=== PATIENT | male | born 1940 | race Caucasian/White ===

== ENCOUNTER 2024-10-28 20:40 | Outpatient (OUT) | payer MEDICARE, OTHER, SELFPAY ==
--- OUTSIDE RECORDS SUMMARY | 2012-04-30 20:00 | XMS_ITS | Continuity of Care Document ---
Author Organization [facility] Address [address] [place] [phone] Phone Care Team Providers Care Refining Equipment Operator Name Role Phone RCM, Rendering Unavailable Unavailable Allergies, Adverse Reactions, Alerts Substance Reaction Status Criticality No Known Allergies Active No Inform ation Advance Directives Directive Yes / No Effective Date File Name No Information Encounters Encounter Description Practice Location Reason(s) For Visit Diagnoses Date Provider Providers Copied on Encounter [facility], [address] [place] [address], [id number], tel:[phone] [facility] Location Cataract Nuclear Sclerotic RCM Rendering. [address] [place] [address], [facility], . tel:[phone] [facility], [address] [place] [address], [id number], tel:[phone] [facility] Location Cataract Nuclear Sclerotic RCM Rendering. [address] [place] [address], [facility], . tel:[phone] Family History Family Member Type Diagnosis Age At Onset No Information Payers Payer name Insurance type Covered green party ID Authoriza tion(s) No Information Social History Type Description Quantity Date Captured Comments Alcohol Use Details Unknown Caffeine Use Details Unknown Tobacco Use Status Never smoker (Never Smoked) Smoking Status Never smoker (Never Smoked) Non-Smoking Tobacco Use Details : No Details Available : No Details Available Sex Male Chief Complaint And Reason For Visit No Information Reason For Referral Reason For Referral No Information History Of Present Illness Encounter Date Complaint History Of Prese nt Illness No Information Functional Status Date Functional Assessmen t No Information Instructions Date Instruction Allyson Bryan cuate Impression/Plan Related to Diagn osis Description: CATARACT, NUCLEAR SCLEROSIS OU \nDiagnosis Code: 366.16 Impression/Plan Related to Diagn osis Description: CATARACT, NUCLEAR SCLEROSIS OU \nDiagnosis Code: 366.16 Assessments Type Assessment Date No Information Patient Care Teams Name Effective Dates (start - stop) Status Members No Information
--- OUTSIDE RECORDS SUMMARY | 2023-07-22 06:30 | XMS_ITS | Continuity of Care Document ---
Author Organization [facility] Address [address] [place] [address] Phone Care Team Providers Care Paper Sorter Name Role Phone Raymundo Winters MD Unavailable Unavailable Allergies, Adverse Reactions, Alerts Substance Reaction Status Criticality No Known Allergies Active No Inform ation Medications Medication Instructions Dosage Effective Dates (start - stop) Status Comments No Drug Therapy Prescribed Procedures Procedure Date Office/outpatient visit,[facility] 2023 X-ray exam of knee, 4+ views Drain Or inject major jointor bursa Triamcinolone acetonide inj Advance Directives Directive Yes / No Effective Date File Name No Information Encounters Encounter Description Practice Location Reason(s) For Visit Diagnoses Date Provider Providers Copied on Encounter Office/outpat ient visit,[facility], [facility], [address] [place], [address], [place] tel:[phone] [place] Unilateral primary osteoarthritis, right knee 4 Singh Fonseca. [address], [place], [place], [id number] , [place]. tel:[phone] Referring Provider: Raymundo Marrero, [address], [place], [address] . tel:[phone] [facility], [address] [place], [address], [place] tel:[phone] [place] Primary osteoarthritis of right knee 4 Guido Borrego. [address], [place], [place], [id number] , [place]. tel:[phone] Referring Provider: Raymundo Marrero, [address], [place], [address] . tel:[phone] Family History Family Member Type Diagnosis Age At Onset No Information Payers Payer name Insurance type Covered alliance party ID Authormargo yao(s) Medicare [place] MB [id number] [place] [address] Only [place] [id number] Social History Type Description Quantity Date Captured Comments Alcohol Use Details Unknown Caffeine Use Details Unknown Tobacco Use Status No Information Smoking Status Never smoker Non-Smoking Tobacco Use Details : No Details Available : No Details Available Sex Male Vital Signs Date / Time: Height Weight BMI Pulse Rate Blood Pressure Temperature Respiratory Rate Body Surface Area Head Circumference Head Circ. Percentile Wt./Luis Manuel. Percentile BMI percentile Pulse Ox Inhaled Ox 10:05 AM 70.00 in 91.626 kg (202.00 lbs) 28.9 8 kg/m eter (2) Chief Complaint And Reason For Visit No Information Reason For Referral Reason For Referral No Information History Of Present Illness Encounter Date Complaint History Of Prese nt Illness Knee Functional Status Date Functional Assessmen t No Information Medications Administered Medication Instructions Dosage Effective Dates (start - stop) Status Comments No Drug Therapy Prescribed Instructions Date Instruction Additional Infor mation No Information Assessments Type Assessment Date No Information Patient Care Teams Name Effective Dates (start - stop) Status Members No Information
--- OUTSIDE RECORDS SUMMARY | 2024-10-20 08:40 | XMS_ITS | Encounter Summary ---
Author Organization [facility] Address [address] [place] [address] Care Team Providers Care Floorworker Lasting Name Role Phone Lauren Adamson MD Primary Care Provider Reason for Visit * Reason Comments Follow-up Encounter Details Date Type Department Care Team (Late st Contact Info) Description 10/20/2024 8:40 AM EDT Office Visit [facility] [address] [place] [id number] Lauren Adamson MD [address] [place], [place] [phone] Impaired fasting glucose; Encounter for immunization Social History Tobacco Use Types Packs/Day Years Used Date Smoking Tobacco: Never Smokeless Tobacco: Never Alcohol Use Standard Drinks/Week Comments Yes 0 (1 standard drink = 0.6 oz pur e alcohol) occasionally PHQ-2 Answer Date Recorded Patient Health Questionnaire-2 Score 0 09/16/2024 Sex and Gender Information Value Date Recorded Sex Assigned at Not on file Legal Sex Male 7:19 PM EDT Gender Identity Not on file Sexual Orientation Not on file documented as of this encounter Last Filed Vital Signs Vital Sign Reading Time Taken Comments Blood Pressure 110/72 10/20/2024 8:47 AM EDT Pulse 61 10/20/2024 8:47 AM EDT Temperature - - Respiratory Rate 18 10/20/2024 8:47 AM EDT Oxygen Saturation 98% 10/20/2024 8:47 AM EDT Inhaled Oxygen Concentration - - Weight 90.2 kg (198 lb 12.8 oz) 025 8:47 AM EDT Height 177.8 cm (5' 10 ) 10/20/2024 8:47 AM EDT Body Mass Index 28.52 10/20/2024 8:47 AM EDT documented in this encounter Progress Notes * Lauren Adamson MD - 10/20/2024 8:40 AM EDT Images from the original note were not included. Subjective ?Quick Links Last Note in Specialty Snapshot Edit RFV/CC Edit Screenings Current Meds Patient ID: Raymundo Chopra is a 84 y.o. male who presents for Follow-up. HPI History of Present Illness The patient presents for evaluation of impaired glucose tolerance and sleep apnea. He has not been formally diagnosed with diabetes. He maintains a healthy diet, rich in vegetables, and leads an active lifestyle, working daily. He reports feeling well overall. He reports no respiratory issues or chest pain. However, he does experience frequent nasal congestion. He is scheduled for a sleep study on 10/28/2024. ?Quick Review Review Full History Edit History Meds - apixaban (Eliquis) 5 MG tablet Cyanocobalamin 2500 MCG sublingual tablet donepezil (Aricept) 5 MG tablet fluticasone (Flonase Sensimist) 27.5 MCG/SPRAY nasal spray ipratropium (Atrovent) 0.06 % nasal spray metoprolol succinate XL (Toprol-XL) 25 MG 24 hr tablet pantoprazole (ProtoNix) 40 MG EC tablet sotalol (Betapace) 80 MG tablet tamsulosin (Flomax) 0.4 MG 24 hr capsule --- No past medical history on file. Objective ?Quick Links Add Vitals Timeline (Adult) Labs Imaging Results Review Trend Vitals ?? Avoid pulling in long tables of results. Comment on relevant results to support your medical decision making. BP 110/72 (BP Location: Left arm, Patient Position: Sitting, BP Cuff Size: Adult) Pulse 61 Resp18 Ht 5' 10 Wt 198 lb 12.8 oz SpO2 98% BMI 28.52 kg/m?? Physical Exam Constitutional: Appearance: He is normal weight. HENT: Head: Normocephalic and atraumatic. Nose: Nose normal. No congestion. Mouth/Throat: Mouth: Mucous membranes are moist. Eyes: Extraocular Movements: Extraocular movements intact. Pupils: Pupils are equal, round, and reactive to light. Cardiovascular: Rate and Rhythm: Normal rate and regular rhythm. Pulmonary: Effort: Pulmonary effort is normal. No respiratory distress. Breath sounds: Normal breath sounds. No wheezing. Musculoskeletal: General: No swelling or deformity. Cervical back: Normal range of motion and neck supple. Right lower leg: No edema. Left lower leg: No edema. Skin: General: Skin is warm and dry. Findings: No rash. Neurological: General: No focal deficit present. Mental Status: He is alert and oriented to person, place, and time. Cranial Nerves: No cranial nerve deficit. Gait: Gait normal. Psychiatric: Mood and Affect: Mood normal. Behavior: Behavior normal. Physical Exam Respiratory: Clear to auscultation, no wheezing, rales or rhonchi Cardiovascular: Regular rate and rhythm, no murmurs, rubs, or gallops Lab Results Component Value Date HGBA1C 6.1 10/20/2024 ?Quick Links Full Problem List Cardiology CHF Assessment & Plan Impaired fasting glucose Orders: POCT glycosylated hemoglobin (Hb A1C) docked device Microalbumin / creatinine urine ratio; Future Assessment & Plan 1. Impaired glucose tolerance: - Blood glucose levels have shown improvement compared to the previous year, indicating careful dietary management. - A urine sample will be collected for further analysis. 2. Sleep apnea: - He is scheduled for a sleep study on 10/28/2024. If diagnosed with sleep apnea, a mask will be provided to help manage the condition. 3. Health maintenance: - He was advised to receive the influenza vaccine today and the COVID-19 vaccine, but he declined the COVID-19 vaccine. The importance of these vaccines, especially given his age and increased risk of respiratory infections, was discussed. - The influenza vaccine will be administered today. documented in this encounter Plan of Treatment Upcoming Encounters Date Type Department Care Team (Late st Contact Info) Description 11/03/2024 9:00 AM EDT Office Visit [facility] [address] [facility] [address] [place] [address] Betty Ribera MD [address] [facility] [address] [place] [address] documented as of this encounter Procedures Procedure Name Priority Date/Time Associated Diagnosis Comments MICROALBUMIN / CREATININE URINE RATIO Routine 10/20/2024 9:32 AM EDT Impaired fasting glucose POCT GLYCOSYLATED HEMOGLOBIN (HGB A1C) Routine 10/20/2024 8:55 AM EDT Impaired fasting glucose documented in this encounter Results * Microalbumin / creatinine urine ratio (10/20/2024 9:32 AM EDT) CREATININE, RANDOM URINE 131 20 - 320 mg/dL [facility] ALBUMIN, URINE 1.3 See Note: mg/dL [facility] Comment: Reference Range: Reference Range Not established ALBUMIN/CREATININE RATIO, RANDOM URINE 10 <30 mg/g creat [facility] Comment: The ADA defines abnormalities in albumin excretion as follows: Albuminuria Category Result (mg/g creatinine) Normal to Mildly increased <30 Moderately increased 30-299 Severely increased > OR = 300 The ADA recommends that at least two of three specimens collected within a 3-6 month period be abnormal before considering a patient to be within a diagnostic category. Urine Urine specimen obtained by clean catch procedure / Unknown 10/20/2024 9:32 AM EDT 10/20/2024 4:00 PM EDT Narrative Resulting Agency Comment Performing Organization Information Site ID: QPT Name: [facility] Address: [address] [place] [phone] Director: Jerry Zimmerman MD us Lauren Adamson MD LAB URINE ORDERABLES Final Resul t [facility] * (ABNORMAL) POCT glycosylated hemoglobin (Hb A1C) docked device (10/20/2024 8:55 AM EDT) Hemoglobin A1C 6.1 Blood Venous blood specimen / Unknown 10/20/2024 8:55 AM EDT us Lauren Adamson MD POINT OF CARE TEST ENTER/EDIT OR DERABLES Final Result documented in this encounter Visit Diagnoses Diagnosis Impaired fasting glucose Encounter for immunization documented in this encounter Care Teams Floorworker Lasting Relationship Specialty Start Date End Date Lauren Adamson MD [address] [place] [address] PCP - General Family Medicine 09/09/24 documented as of this encounter
--- OUTSIDE RECORDS SUMMARY | 2024-10-28 20:43 | XMS_ITS | Encounter Summary ---
[id number] [address] [place] [address] Care Team Providers Care Floral Manager Name Role Phone Lauren Adamson MD Primary Care Provider [phone] Encounter Details Date Type Department Care Team (Late st Contact Info) Description 09/10/2024 Results Follow-Up [facility] [address] [place] [phone] Oren Rubin RN Basic Metabolic Panel, Magnesium Social History Tobacco Use Types Packs/Day Years Used Date Smoking Tobacco: Never Smokeless Tobacco: Never Alcohol Use Standard Drinks/Week Comments Not Currently 0 (1 standard drink = 0.6 oz pur e alcohol) [facility] Utilities Answer Date Recorded In the past 12 months has e electric, gas, oil, or water company threatened to shut off services in your home? No 09/20/2023 PRAPARE - Transportation Answer Date Re corded In the past 12 months, has l ack of transportation kept you from medical appointments or from getting medications? No 10/2023 In the past 12 months, has l ack of transportation kept you from meetings, work, or from getting things needed for daily living? No 09/20/2023 Housing Instability Answer Date Recorde d Are you worried or concerned that in the next two months you may not have stable housing that you own, rent or stay in as a part of a household? No 09/20/2023 Childcare Answer Date Recorded Childcare Unknown 07/23/2018 Employment Answer Date Recorded Employment Unknown 07/23/2018 Hunger Screening Answer Date Recorded Within the past 12 months we worried whether our food would run out before we got money to buy more. Never True 10/23/2023 Within the past 12 months th e food we bought just didn't last and we didn't have money to get more. Never True 10/23/2023 Purpose - Life Answer Date Recorded I have a purpose and direction in my life. Stron gly Agree 09/16/2023 Sex and Gender Information Value Date Recorded Sex Assigned at Male 09/15/2018 5:13 PM EDT Legal Sex Male 11:30 AM EDT Gender Identity Male 09/15/2018 5:13 PM EDT Sexual Orientation Straight 09/15/2018 5: 13 PM EDT documented as of this encounter Plan of Treatment Not on file documented as of this encounter Goals Goal Patient Goal Type Associated Problems Recent Progress Patient-Stated? Author home with self care General Yes Nazia Hill, RN Note: Evaluation of progress towards goal: per patient is independent at home with all ADL's and mobility. documented as of this encounter Visit Diagnoses Not on filedocumented in this encounter Care Teams Floral Manager Relationship Specialty Start Date End Date Lauren Adamson MD PCP - General Family Medicine 10/21/18 documented as of this encounter
--- OUTSIDE RECORDS SUMMARY | 2024-10-28 20:43 | XMS_ITS | Encounter Summary ---
Author Organization [facility] Address [id number] [address] [place] [address] Care Team Providers Care Last Model Department Supervisor Name Role Phone Lauren Adamson MD Primary Care Provider [phone] Encounter Details Date Type Department Care Team (Late st Contact Info) Description 02/03/2020 Orders Only [facility] [address] [place] [phone] Pennie Elise MA Mixed hyperlipidemia Social History Tobacco Use Types Packs/Day Years Used Date Smoking Tobacco: Never Smokeless Tobacco: Never Alcohol Use Standard Drinks/Week Comments Yes 0 (1 standard drink = 0.6 oz pur e alcohol) Childcare Answer Date Recorded Childcare Unknown 07/23/2018 Employment Answer Date Recorded Employment Unknown 07/23/2018 Sex and Gender Information Value Date Recorded Sex Assigned at Male 09/15/2018 5:13 PM EDT Legal Sex Male 11:30 AM EDT Gender Identity Male 09/15/2018 5:13 PM EDT Sexual Orientation Straight 09/15/2018 5: 13 PM EDT COVID-19 Exposure Response Date Recorded In the last month, have you been in contact with someone who was confirmed or suspected to have Coronavirus / COVID-19? No / Unsure 01/14/2020 8:54 AM EST documented as of this encounter Plan of Treatment Not on file documented as of this encounter Procedures Procedure Name Priority Date/Time Associated Diagnosis Comments LIPID PROFILE Routine 01/05/2020 Mixed hyperlipidemia documented in this encounter Results * Lipid panel (01/05/2020) External Cholesterol 110 [facility] External Cholesterol:Hdl 2 [facility] External Hdl Cholesterol 54 [facility] External Ldl (Calc) 46 [facility] External Triglycerides 50 [facility] External Very Low Lipoprotein 10 [facility] 01/05/2020 Ammon Woody ACTIVITY THERAPY TEACHER-SUPERVISOR ASSEMBLY LAB BLOOD ORDERABLES Final Result [facility] documented in this encounter Visit Diagnoses Diagnosis Mixed hyperlipidemia documented in this encounter Care Teams Last Model Department Supervisor Relationship Specialty Start Date End Date Lauren Adamson MD PCP - General Family Medicine 10/21/18 documented as of this encounter
--- OUTSIDE RECORDS SUMMARY | 2024-10-28 20:43 | XMS_ITS | Encounter Summary ---
Author Organization [facility] Address [id number] [address] [place] [address] Care Team Providers Care Second Hand Name Role Phone Lauren Adamson MD Primary Care Provider [phone] Encounter Details Date Type Department Care Team (Late st Contact Info) Description 03/30/2019 Refill [facility] [address] [place] [phone] Tiffany Haddad, TIM Social History Tobacco Use Types Packs/Day Years [...] PM EDT documented as of this encounter Miscellaneous Notes * Telephone Encounter - Tiffany Haddad RN - 03/30/2019 11:38 AM EST Pt requesting eliquis samples but relates not taking an other meds at this time except ASA 81mg occaisionaly. Meds reviewed. When asked why stopped taking states well my body ached so bad that I stopped them and feel much better. Instructed to restart losartan 12.5mg QD/betapace. Needs to take ASA [address]D. Will message Dr. Hernandez regarding crestor causing muscle aches. Tiffany Haddad RN 03/30/19 1144 * Telephone Encounter - Willi Hernandez DO - 03/30/2019 11:38 AM EST Zetia 10 mg daily and repeat lab in 2 months. * Telephone Encounter - Tiffany Haddad RN - 03/30/2019 11:38 AM EST Instructions called to pt. Tiffany Haddad RN 04/02/19 1535 * Telephone Encounter - Billie Amezcua RN - 03/30/2019 11:38 AM EST Pt reminded to have done soon documented in this encounter Plan of Treatment Not on file documented as of this encounter Visit Diagnoses Diagnosis Pure hypercholesterolemia- Primary Atherosclerosis of [place] coronary artery of [place] heart with stable angina pectoris Encounter for therapeutic drug monitoring documented in this encounter Care Teams Second Hand Relationship Specialty Start Date End Date Lauren Adamson MD PCP - General Family Medicine 10/21/18 documented as of this encounter
--- OUTSIDE RECORDS SUMMARY | 2024-10-28 20:43 | XMS_ITS | Encounter Summary ---
Author Organization [facility] Address [facility] [id number] [address] [place] [address] Care Team Providers Care Relocation Coordinator Name Role Phone Lauren Adamson MD Primary Care Provider Encounter Details Date Type Department Care Team (Late st Contact Info) Description 02/03/2020 Orders Only [facility] [address] [place] [phone] Billie Amezcua RN Paroxysmal atrial fibrillation (CMS-HCC) (Primary Dx); SOB (shortness of breath) Social History Tobacco Use Types Packs/Day Years [...] on file documented as of this encounter Results * CBC auto differential (02/26/2020) 02/26/2020 us Willi G David DO LAB BLOOD ORDERABLES Final Resul t [facility] documented in this encounter Visit Diagnoses Diagnosis Paroxysmal atrial fibrillation (CMS-HCC)- Primary Atrial fibrillation SOB (shortness of breath) Shortness of breath documented in this encounter Care Teams Relocation Coordinator Relationship Specialty Start Date End Date Lauren Adamson MD PCP - General Family Medicine 10/21/18 documented as of this encounter
--- OUTSIDE RECORDS SUMMARY | 2024-10-28 20:43 | XMS_ITS | Encounter Summary ---
Author Organization [facility] Address [id number] [address] [place] [address] Care Team Providers Care Line Haul Owner Operator Name Role Phone Lauren Adamson MD Primary Care Provider [phone] Reason for Visit * Reason Comments Med Refill Encounter Details Date Type Department Care Team (Late st Contact Info) Description 11/26/2022 Refill [facility] [address] [place] [phone] Gael Vasquez, PRESS OFFICER-FIRE SPRINKLER APPARATUS INSPECTOR [address] [place] [address] Med Refill Social History Tobacco Use Types Packs/Day Years [...] got money to buy more. Never True 10/09/2022 Within the past 12 months th e food we bought just didn't last and we didn't have money to get more. Never True 10/09/2022 Purpose - Life Answer Date Recorded Purpose and direction in life Unknown Sex and Gender Information Value Date Recorded Sex Assigned at Male 09/15/2018 5:13 PM EDT Legal Sex Male 11:30 AM EDT Gender Identity Male 09/15/2018 5:13 PM EDT Sexual Orientation Straight 09/15/2018 5: 13 PM EDT documented as of this encounter Miscellaneous Notes * Telephone Encounter - Sita Jimenez RN - 11/26/2022 9:47 AM EDT Received refill req from pharm for sotalol. Last ov-10/09/22, cmp,mg-09/25/22,EKG-07/31/22. REfill pended to [facility] documented in this encounter Plan of Treatment Not on file documented as of this encounter Visit Diagnoses Diagnosis Paroxysmal atrial fibrillation ([facility]-H[facility]) Atrial fibrillation Encounter for therapeutic drug monitoring documented in this encounter Care Teams Line Haul Owner Operator Relationship Specialty Start Date End Date Lauren Adamson MD PCP - General Family Medicine 10/21/18 documented as of this encounter
--- OUTSIDE RECORDS SUMMARY | 2024-10-28 20:43 | XMS_ITS | Clinical Summary ---
Author Organization [facility] Address [address], [address] [place] [address] Care Team Providers Care Shoe Handler Name Role Phone Unavailable Primary Care Provider Unavailabl e Allergies No known active allergies Medications SIMVASTATIN PO Take by mouth daily Active aspirin 81 MG tablet Take 81 mg by mouth daily Active Active Problems Problem Noted Date Diagnosed Date Combined forms of age-related cataract of right eye 09/22/2016 Social History Tobacco Use Types Packs/Day Years Used Date Smoking Tobacco: Never Sex and Gender Information Value Date Recorded Sex Assigned at Not on file Legal Sex Male 10:47 AM EDT Gender Identity Not on file Sexual Orientation Not on file Last Filed Vital Signs Vital Sign Reading Time Taken Comments Blood Pressure 114/71 09/24/2016 2:00 PM EDT Pulse 66 09/24/2016 2:00 PM EDT Temperature 36.4 C (97.6 F) 09/24/2016 1:45 PM EDT Respiratory Rate 18 09/24/2016 2:00 PM EDT Oxygen Saturation 98% 09/24/2016 2:00 PM EDT Inhaled Oxygen Concentration - - Weight 90.7 kg (200 lb) 09/24/2016 1:15 PM EDT Height 177.8 cm (5' 10 ) 09/24/2016 1:15 PM EDT Body Mass Index 28.7 09/24/2016 1:15 PM EDT Plan of Treatment Not on file Medical Devices Implanted Type Area Paper Grader Device Identifier Shelf Expiration Date Model / Serial / Lot Lens Iol Mx60 19.0d - [id number] Implanted:Qty: 1 on 09/24/2016 by Manuelito Cheney MD at [facility] Eye Right: Eye [employer]-PMM 10/11/2018 MX60 19.0D / [id number] / Insurance MEDICARE Advance Directives * Full Code (Latest Code Status on File) Date Activated Date Inactivated Comments 09/24/2016 1:48 PM 09/24/2016 4:15 PM * Full Code Date Activated Date Inactivated Comments 09/24/2016 12:09 PM 09/24/2016 1:48 PM
--- OUTSIDE RECORDS SUMMARY | 2024-10-28 20:43 | XMS_ITS | Clinical Summary ---
Author Organization [facility] Address [id number] [address] [place] [address] Care Team Providers Care Textiles Sales Representative Name Role Phone Lauren Adamson MD Primary Care Provider [phone] Allergies No known active allergies Medications nitroglycerin (NITROSTAT) 0.4 MG SL tablet 1 under the tongue as needed for angina, may repeat q5mins for up three doses 25 tablet 3 1 Active Additional Information Patient taking differently: 0.4 mg sublingual Every 5 min PRN, chest pain, 1 under the tongue as needed for angina, may repeat q5mins for up three doses, Reported on 09/08/2024 sotaloL (sotalol AF) 80 mg tablet Take 1 tablet (80 mg total) by mouth in the morning and 1 tablet (80 mg total) before bedtime. 180 tablet 2 5 Active apixaban (ELIQUIS) 5 mg tablet Take 1 tablet (5 mg total) by mouth in the morning and 1 tablet (5 mg total) before bedtime. 180 tablet 2 5 Active Active Problems Problem Noted Date Diagnosed Date Cardiomyopathy 09/18/2023 Persistent atrial fibrillation 09/18/2023 Abnormal stress test 09/17/2023 Moderate coronary artery risk chest pain 024 Mild tricuspid regurgitation 09/14/2021 Mild mitral regurgitation 09/14/2021 ASCVD (arteriosclerotic cardiovascular disease) 09/14/2021 Paroxysmal atrial fibrillation 10/21/2018 Erectile dysfunction 09/16/2018 Overview (09/06/2021): 09/16/18: ED - viagra worked in the past. Rx given 09/06/21: He requested a refill for Viagra, but has a nitroglycerin prescription on hand. We discussed ICI or WENDY as alternatives Benign prostatic hyperplasia with lower urinary tract symptoms 09/16/2018 Overview (09/06/2021): 09/16/18: LUTS - plan trial tamsulosin. Told to separate by 4 hours with viagra. 10/21/18: Improved with tamsulosin. Refill given 09/06/21: Restarted tamsulosin. Happy with results. No side effects. 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 SOB (shortness of breath) Resolved Problems Problem Noted Date Diagnosed Date Resolved Date Angina at rest 11/11/2018 10/09/2022 Overview (11/11/2018): Added automatically from request for surgery [id number] Encounters Date Type Department Care Team Description 09/10/2024 Results Follow-Up [facility] [address] [place] [address] Oren Rubin RN Basic Metabolic Panel, Magnesium 09/09/2024 Telephone [facility] [address] [place] [address] Pennie Cano CMA 09/08/2024 11:00 AM EDT Office Visit [facility] [address] [place] [address] Benedict Rodriges MD Persistent atrial fibrillation ([facility]) (Primary Dx) 09/07/2024 Travel 08/20/2024 Refill [facility] [address] [place] [address] Billie Amezcua, RN Med Refill from Last 3 Months Immunizations Immunization Administration Dates Next Due Tdap 06/28/2021 Family History Medical History Relation Name Comments Stroke Father No Known Problems Mother Relation Name Status Comments Father Mother Social History Tobacco Use Types Packs/Day Years Used Date Smoking Tobacco: Never Smokeless Tobacco: Never Tobacco Cessation:Counseling Given: Not Answered Alcohol Use Standard Drinks/Week Comments Not Currently 0 (1 standard drink = 0.6 oz pur e alcohol) [facility] Utilities Answer Date Recorded In the past 12 months has th e electric, gas, oil, or water company [...] Orientation Straight 09/15/2018 5: 13 PM EDT Last Filed Vital Signs Vital Sign Reading Time Taken Comments Blood Pressure 124/80 09/08/2024 10:24 AM EDT Pulse 59 09/08/2024 10:24 AM EDT Temperature 36.1 C (97 F) 11/25/2023 12:11 PM EDT Respiratory Rate 18 11/25/2023 1:00 PM EDT Oxygen Saturation 96% 09/08/2024 10:24 AM EDT Inhaled Oxygen Concentration - - Weight 92.1 kg (203 lb) 09/08/2024 10:24 AM EDT Height 177.8 cm (5' 10 ) 09/08/2024 10:24 AM EDT Body Mass Index 29.13 09/08/2024 10:24 AM EDT Plan of Treatment Health Maintenance Due Date Last Done Comments Depression Screening 1952 Zoster (Shingles) Vaccine (1 of 2) 1990 Fall Risk Screening 2005 Influenza Vaccine 10/12/2024 12/25/2018, , 12/01/2017 Tobacco Screening 09/16/2025 09/16/2024 DTaP,Tdap and Td Vaccines (2 - Td or Tdap) 06/29/2031 06/28/2021 Goals Goal Patient Goal Type Associated Problems Recent Progress Patient-Stated? Author home with self care General Yes Nazia Hill, RN Note: Evaluation of progress towards goal: per patient is independent at home with all ADL's and mobility. Medical Devices Not on file Procedures Procedure Name Priority Date/Time Associated Diagnosis Comments MAGNESIUM Routine 09/09/2024 7:29 AM EDT Persistent atrial fibrillation ([facility]) BASIC METABOLIC PANEL Routine 09/09/2024 7:29 AM EDT Persistent atrial fibrillation (CMS-HCC) POCT EKG Routine 09/08/2024 Persistent atrial fibrillation (CMS-HCC) from Last 3 Months Results * Magnesium (09/09/2024 7:29 AM EDT) MAGNESIUM 1.9 1.8 - 2.6 mg/dL 09/09/2024 2:23 PM EDT [facility] Blood Venous blood / Unknown Venipuncture / Unknown 09/09/2024 7:29 AM EDT 09/09/2024 7:29 AM EDT Benedict Rodriges MD LAB BLOOD ORDERABLES Final Resul t [facility] [address] [place] [address], [place] [phone] * (ABNORMAL) Basic Metabolic Panel (09/09/2024 7:29 AM EDT) SODIUM 143 134 - 146 mmol/L 09/09/2024 2:23 PM EDT [facility] POTASSIUM 4.1 3.5 - 5.0 mmol/L 09/09/2024 2:23 PM EDT [facility] CHLORIDE 106 98 - 109 mmol/L 09/09/2024 2:23 PM EDT [facility] CARBON DIOXIDE 30 22 - 32 mmol/L 09/09/2024 2:23 PM EDT [facility] ANION GAP 7 5 - 15 mmol/L 09/09/2024 2:23 PM EDT [facility] BLOOD UREA NITROGEN 24 5 - 27 mg/dL 09/09/2024 2:23 PM EDT [facility] CREATININE 0.74 0.60 - 1.30 mg/dL 09/09/2024 2:23 PM EDT [facility] Comment:METHOD TRACEABLE TO IDMS STANDARD GLUCOSE 132(H) 65 - 99 mg/dL 09/09/2024 2:23 PM EDT [facility] CALCIUM 9.3 8.5 - 10.5 mg/dL 09/09/2024 2:23 PM EDT [facility] EGFR Non-Race Dependent 89 >=60 ml/min/1.7 3sq.m 09/09/2024 2:23 PM EDT [facility] Comment: Reported eGFR is based on the CKD-EPI 2020 equation that does not use a race coefficient. Blood Venous blood / Unknown Venipuncture / Unknown 09/09/2024 7:29 AM EDT 09/09/2024 7:29 AM EDT us Benedict Rodriges MD LAB BLOOD ORDERABLES Final Resul t [facility] [address] [place] [address], [place] [phone] * POCT EKG (09/08/2024) us Benedict Rodriges MD ECG ORDERABLES Edited Result - Final MANUALLY TRANSCRIBED RESULTS from Last 3 Months Insurance MEDICARE [facility] MEDICARE Advance Directives * Full Code (Latest Code Status on File) Date Activated Date Inactivated Comments 09/16/2023 6:06 PM 09/19/2023 10:34 AM Care Teams Textiles Sales Representative Relationship Specialty Start Date End Date Lauren Adamson MD PCP - General Family Medicine 10/21/18
--- OUTSIDE RECORDS SUMMARY | 2024-10-28 20:43 | XMS_ITS | Encounter Summary ---
Author Organization [facility] Address [id number] [address] [place] [address] Care Team Providers Care Construction Equipment Operator Name Role Phone Lauren Adamson MD Primary Care Provider [phone] Reason for Visit * Reason Onset Date Comments Med Refill 10/15/2023 Encounter Details Date Type Department Care Team (Late st Contact Info) Description 10/15/2023 Refill [facility] [address] [place] [phone] Billie Amezcua, TIM Med Refill Social History Tobacco Use Types Packs/Day Years Used Date Smoking Tobacco: Never Smokeless Tobacco: Never Alcohol Use Standard Drinks/Week Comments Not Currently 0 (1 standard drink = 0.6 oz pur e alcohol) [facility] Utilities Answer Date Recorded In the [...] got money to buy more. Never True 10/01/2023 Within the past 12 months th e food we bought just didn't last and we didn't have money to get more. Never True 10/01/2023 Purpose - Life Answer Date Recorded I [...] with self care General Yes Nazia Hill, TIM Note: Evaluation of progress towards goal: per patient is independent at home with all ADL's and mobility. documented as of this encounter Visit Diagnoses Not on filedocumented in this encounter Care Teams Construction Equipment Operator Relationship Specialty Start Date End Date Lauren Adamson MD PCP - General Family Medicine 10/21/18 documented as of this encounter
--- OUTSIDE RECORDS SUMMARY | 2024-10-28 20:43 | XMS_ITS | Encounter Summary ---
Author Organization [employer] Address [id number] [address] [place] [address] Care Team Providers Care Nitroglycerin Distributor Name Role Phone Lauren Adamson MD Primary Care Provider [phone] Encounter Details Date Type Department Care Team (Late st Contact Info) Description 09/20/2023 [facility]phone [facility] [address] [place] [phone] Latonya Alejandre Social History Tobacco Use Types Packs/Day Years Used Date Smoking Tobacco: Never Smokeless Tobacco: Never Alcohol Use Standard Drinks/Week Comments Yes 0 (1 standard drink = 0.6 oz pur e alcohol) [facility] Utilities Answer Date Recorded In the [...] got money to buy more. Never True 09/20/2023 Within the past 12 months th e food we bought just didn't last and we didn't have money to get more. Never True 09/20/2023 Purpose - Life Answer Date Recorded I have a purpose and direction in my life. Stron gly Agree 09/16/2023 Sex and Gender Information Value Date Recorded Sex Assigned at Male 09/15/2018 5:13 PM EDT Legal Sex Male 11:30 AM EDT Gender Identity Male 09/15/2018 5:13 PM EDT Sexual Orientation Straight 09/15/2018 5: 13 PM EDT documented as of this encounter Functional Status documented as of this encounter Miscellaneous Notes * Telephone Encounter - Latonya Alejandre - 09/20/2023 12:38 PM EDT ----- Message from SHAI Solorio sent at 09/20/2023 11:39 AM EDT ----- Patient is being discharged from [facility] status post cardiac catheterization, newly reducedLV function. Needs to be seen in the [place] office in 7-10 days. Thanks. documented in this encounter Plan of Treatment [...] on filedocumented in this encounter Care Teams Nitroglycerin Distributor Relationship Specialty Start Date End Date Lauren Adamson MD PCP - General Family Medicine 10/21/18 documented as of this encounter
--- OUTSIDE RECORDS SUMMARY | 2024-10-28 20:43 | XMS_ITS | Encounter Summary ---
Author Organization [facility] Address [address] [place] [address] Care Team Providers Care Patient Placement Coordinator Name Role Phone Rachel Minaya ZOOKEEPER Unavailable [phone] Rachel Minaya ZOOKEEPER Unavailable [phone] Rachel Minaya ZOOKEEPER Unavailable [phone] Lauren Adamson MD Primary Care Provider [phone] Encounter Details Date Type Department Care Team (Late Contact Info) Description 09/27/2022 Abstract [facility] [address] [place] [phone] Lauren Adamson MD [address] [place], [place] [phone] Social History Tobacco Use Types Packs/Day Years Used Date Smoking Tobacco: Never Assessed Sex and Gender Information Value Date Recorded Sex Assigned at Not on file Legal Sex Male 7:19 PM EDT Gender Identity Not on file Sexual Orientation Not on file documented as of this encounter Plan of Treatment Upcoming Encounters Date Type Department Care Team (Late st Contact Info) Description 11/03/2024 9:00 AM EDT Office Visit [facility] [place] [facility] [address] [facility] [address] [place] [phone] Betty Ribera MD [address] [facility] [address] [place], [place] [address] documented as of this encounter Visit Diagnoses Not on filedocumented in this encounter Care Teams Patient Placement Coordinator Relationship Specialty Start Date End Date Rachel Minaya NP [address] [place] [address] PCP - ACO Reach 07/05/22 04/11/23 Rachel Minaya NP [address] [place], [place] [id number] PCP - ACO Reach 06/12/23 03/19/24 Rachel Minaya NP [address] [place], [place] [phone] PCP - ACO Reach 03/27/24 05/14/24 Lauren Adamson MD [address] [place], [place] [id number] PCP - General Family Medicine 09/09/24 documented as of this encounter
--- OUTSIDE RECORDS SUMMARY | 2024-10-28 20:43 | XMS_ITS | Encounter Summary ---
Author Organization [employer] Address [id number] [address] [place] [address] Care Team Providers Care Coiler Operator Name Role Phone Lauren Adamson MD Primary Care Provider Encounter Details Date Type Department Care Team (Late st Contact Info) Description 02/29/2020 Orders Only [facility] [address] [place] [phone] Pennie Elise MA Paroxysmal atrial fibrillation (CMS-HCC); SOB (shortness of breath); Pure hypercholesterolemia; Encounter for therapeutic drug monitoring Social History Tobacco Use Types Packs/Day Years Used Date Smoking Tobacco: Never Smokeless Tobacco: Never Alcohol Use Standard Drinks/Week Comments Yes 0 (1 standard drink = 0.6 oz pur e alcohol) Childcare Answer Date Recorded Childcare Unknown 07/23/2018 Employment Answer Date Recorded Employment Unknown 07/23/2018 Purpose - Life Answer Date Recorded Purpose [...] Procedure Name Priority Date/Time Associated Diagnosis Comments CBC WITH AUTO DIFFERENTIAL Routine 02/26/2020 Paroxysmal atrial fibrillation (CMS-HCC) SOB (shortness of breath) ALT Routine 01/04/2020 Pure hypercholesterolemia Encounter for therapeutic drug monitoring AST Routine 01/04/2020 Pure hypercholesterolemia Encounter for therapeutic drug monitoring BILIRUBIN, TOTAL Routine 01/04/2020 Pure hypercholesterolemia Encounter for therapeutic drug monitoring documented in this encounter Results * CBC auto differential (02/26/2020) 02/26/2020 us Willi Hernandez DO LAB BLOOD ORDERABLES Final Resul t SUNQUEST * ALT (01/04/2020) 01/04/2020 Darryl Serra MD LAB BLOOD ORDERABLES Final R esult Performing Organization Address [facility] Co de Phone Number SUNQUEST * AST (01/04/2020) 01/04/2020 Darryl Serra MD LAB BLOOD ORDERABLES Final R esult Performing Organization Address [facility] Co de Phone Number SUNQUEST * Bilirubin, total (01/04/2020) 01/04/2020 Darryl Serra MD LAB BLOOD ORDERABLES Final R esult Performing Organization Address [facility] Co de Phone Number SUNQUEST documented in this encounter Visit Diagnoses Diagnosis Paroxysmal atrial fibrillation ([facility]) Atrial fibrillation SOB (shortness of breath) Shortness of breath Pure hypercholesterolemia Encounter for therapeutic drug monitoring documented in this encounter Care Teams Coiler Operator Relationship Specialty Start Date End Date Lauren Adamson MD PCP - General Family Medicine 10/21/18 documented as of this encounter
--- OUTSIDE RECORDS SUMMARY | 2024-10-28 20:43 | XMS_ITS | Encounter Summary ---
Author Organization [facility] Address [address] [place] [address] Care Team Providers Care [employer] Freight Car Cleaner Name Role Phone Lauren Adamson MD Primary Care Provider [phone] Encounter Details Date Type Department Care Team (Latest Contact Info) Description 10/20/2024 Travel Social History Tobacco Use Types Packs/Day Years [...] Description 11/03/2024 9:00 AM EDT Office Visit [facility] [address] [facility] [address] [place] [address] Betty Ribera MD [address] [facility] [address] [place] [address] documented as of this encounter Visit Diagnoses Not on filedocumented in this encounter Care Teams [employer] Freight Car Cleaner Relationship Specialty Start Date End Date Lauren Adamson MD [address] [place] [id number] PCP - General Family Medicine 09/09/24 documented as of this encounter
--- OUTSIDE RECORDS SUMMARY | 2024-10-28 20:43 | XMS_ITS | Encounter Summary ---
Author Organization [facility] Address [address] [facility] [place] [address] Care Team Providers Care Industrial Controls Technician Name Role Phone Lauren Adamson MD Primary Care Provider [phone] Encounter Details Date Type Department Care Team ([facility] Contact Info) Description 10/20/2024 Bamboo flowsheet [facility] [place] [facility] [address] [facility] [place] [phone] Lauren Adamson MD [address] [place], [place] [phone] Social History Tobacco Use Types Packs/Day Years [...] Encounters Date Type Department Care Team (Late Contact Info) Description 11/03/2024 9:00 AM EDT Office Visit [facility] [place] [facility] [address] [facility] [address] [place] [address] Betty Ribera MD [address] [facility] [address] [place] [address] documented as of this encounter Visit Diagnoses Not on filedocumented in this encounter Care Teams Industrial Controls Technician Relationship Specialty Start Date End Date Lauren Adamson MD [address] [place] [address] PCP - General Family Medicine 09/09/24 documented as of this encounter
--- OUTSIDE RECORDS SUMMARY | 2024-10-28 20:43 | XMS_ITS | Clinical Summary ---
Author Organization [facility] Healthcare Address [address] [place] [address] Care Team Providers Care Melt Helper Name Role Phone Lauren Adamson MD Primary Care Provider [phone] Allergies No known active allergies Medications apixaban (Eliquis) 5 MG tablet Take 5 mg by mouth in the morning and 5 mg in the evening. 5 Active metoprolol succinate XL (Toprol-XL) 25 MG 24 hr tablet Take 12.5 mg by mouth Daily Active pantoprazole (ProtoNix) 40 MG EC tablet Take 40 mg by mouth in the morning. Take before meals. 4 Active sotalol (Betapace) 80 MG tablet Take 80 mg by mouth in the morning and 80 mg in the evening. 5 Active tamsulosin (Flomax) 0.4 MG 24 hr capsuleIndicatio ns:Benign prostatic hyperplasia with lower urinary tract symptoms, symptom details unspecified Take 1 capsule (0.4 mg) by mouth Daily 100 capsule 3 5 09/17/19 26 Active donepezil (Aricept) 5 MG tabletIndication s:Memory loss Take 1 tablet (5 mg) by mouth at bedtime 30 tablet 5 5 03/15/19 26 Active Cyanocobalamin 2500 MCG sublingual tabletIndication s:Anemia due to vitamin B12 deficiency, unspecified B12 deficiency type Place 1 tablet under the tongue Daily 30 tablet 11 5 Active fluticasone (Flonase Sensimist) 27.5 MCG/SPRAY nasal sprayIndications :Nasal obstruction Administer 1-2 sprays into each nostril in the morning. 10 g 5 5 09/26/19 26 Active ipratropium (Atrovent) 0.06 % nasal sprayIndications :Vasomotor rhinitis Administer 2 sprays into each nostril in the morning and 2 sprays in the evening and 2 sprays before bedtime. 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 09/16/2024 Assessment & Plan (09/16/2024 10:10 AM EDT): Orders: CBC and differential; Future Comprehensive metabolic panel; Future Lipid panel; Future Erectile dysfunction 09/16/2024 Pure hypercholesterolemia 09/16/2024 SOB (shortness of breath) 09/16/2024 Abnormal stress test 09/17/2023 CAD (coronary artery disease) 09/14/2021 Mild mitral regurgitation 09/14/2021 Mild tricuspid regurgitation 09/14/2021 Paroxysmal atrial fibrillation 10/21/2018 Assessment & Plan (09/16/2024 1:59 PM EDT): managed by cardiology Benign prostatic hyperplasia with lower urinary tract symptoms 09/16/2018 Overview (09/16/2024): 09/16/18: LUTS - plan trial tamsulosin. Told to separate by 4 hours with viagra. 10/21/18: Improved with tamsulosin. Refill given 09/06/21: Restarted tamsulosin. Happy with results. No side effects. PSA 3.52 Assessment & Plan (09/16/2024 10:10 AM EDT): Orders: tamsulosin (Flomax) 0.4 MG 24 hr capsule; Take 1 capsule (0.4 mg) by mouth Daily PSA; Future Cardiomyopathy 08/02/2017 Assessment & Plan (09/16/2024 1:59 PM EDT): echo 2023 ef 35-40% managed by cardiology Combined forms of age-related cataract of right eye 09/22/2016 Dyslipidemia 05/21/2013 Abnormal result of cardiovascular function study 11/18/2012 Encounters Date Type Department Care Team Description 10/21/2024 Results Follow-Up [facility] [address] [facility] [place] [address] Lauren Adamson MD POCT glycosylated hemoglobin (Hb A1C) docked device, Microalbumin / creatinine urine ratio 10/20/2024 8:40 AM EDT Office Visit [place] [address] [facility] [place] [address] Lauren Adamson MD Impaired fasting glucose; Encounter for immunization 10/20/2024 Bamboo flowsheet [place] [address] [facility] [place] [address] Lauren Adamson MD 10/20/2024 Travel 09/29/2024 9:20 AM EDT Office Visit [facility] [address] [facility] [address] [place] [address] Betty Ribera MD Nasal obstruction (Primary Dx); MARY (obstructive sleep apnea); Vasomotor rhinitis 09/29/2024 Bamboo flowsheet [facility] [address] [facility] [address] [place] [address] Betty Ribera MD 09/29/2024 Travel 09/25/2024 9:00 AM EDT Office Visit [place] [address] [facility] [place] [address] Lauren Adamson MD Nasal obstruction (Primary Dx); Pure hypercholesterolemia, unspecified ; Unspecified dementia, unspecified severity, without behavioral disturbance, psychotic disturbance, mood disturbance, and anxiety (HCC) 09/25/2024 Bamboo flowsheet [place] [address] [facility] [place] [address] Lauren Adamson MD 09/25/2024 Travel 09/17/2024 Results Follow-Up [place] [address] [place] [address] Lauren Adamson MD CBC and differential, Comprehensive metabolic panel, Lipid panel, Additional followed-up results: 4 09/16/2024 8:40 AM EDT Office Visit [facility] [address] [facility] [place] [address] Lauren Adamson MD Routine general medical examination at a health care facility (Primary Dx); Atherosclerosis of navajo coronary artery of navajo heart with angina pectoris ; Paroxysmal atrial fibrillation (HCC); Cardiomyopathy, unspecified type (HCC); Benign prostatic hyperplasia with lower urinary tract symptoms, symptom details unspecified; Memory loss; Type 2 diabetes mellitus without complications (HCC); Chronic systolic (congestive) heart failure (HCC); Other persistent atrial fibrillation (HCC) 09/16/2024 Bamboo flowsheet [facility] [address] [place] [phone] Lauren Adamson MD 09/16/2024 Travel from Last 3 Months Immunizations Immunization Administration Dates Next Due Influenza, High Dose Seasonal, Preservative Free 12/25/2018 Influenza, High-dose Seasona l, Quadrivalent, Preservative Free 10/20/2024 Influenza, injectable, quadrivalent, preservativ e free 12/01/2017 Influenza, seasonal, injectable, preservative fr ee 12/07/2017 Pneumococcal Conjugate PCV 13 07/23/2016 Pneumococcal Polysaccharide PPSV23 07/24/2017 Tdap 06/28/2021 Family History Medical History Relation Name Comments Stroke Father Stroke Mother Relation Name Status Comments Brother Father Mother Social History Tobacco Use Types Packs/Day Years Used Date Smoking Tobacco: Never Smokeless Tobacco: Never Tobacco Cessation:Counseling Given: Not Answered Alcohol Use Standard Drinks/Week Comments Yes 0 [...] Pulse 61 10/20/2024 8:47 AM EDT Temperature 36.3 C (97.4 F) 09/25/2024 9:00 AM EDT Respiratory Rate 18 10/20/2024 8:47 AM EDT Oxygen Saturation 98% 10/20/2024 8:47 AM EDT Inhaled Oxygen Concentration - - Weight 90.2 kg (198 lb 12.8 oz) 10/20/2024 8:47 AM EDT Height 177.8 cm (5' 10 ) 10/20/2024 8:47 AM EDT Body Mass Index 28.52 10/20/2024 8:47 AM EDT Plan of Treatment Upcoming Encounters Date Type Department Care Team (Late st Contact Info) Description 11/03/2024 9:00 AM EDT Office Visit [facility] [address] [place] [address] Betty Ribera MD [address] [place] [address] Health Maintenance Due Date Last Done Comments Diabetes: Retinopathy Screening 1950 Diabetes: Hemoglobin A1C 01/19/2025 025, 09/16/2023, 07/25/2018 Medicare Annual Wellness (AWV) 09/16/2025 09/16/2024 Diabetes: Urine Protein Screening 10/20/2025 025 Pneumococcal Vaccine: 65+ Years Completed 8, 07/23/2016 Influenza Vaccine Completed 10/20/2024, , 12/07/2017, Additional history exists Procedures Procedure Name Priority Date/Time Associated Diagnosis Comments MICROALBUMIN / CREATININE URINE RATIO Routine 10/20/2024 9:32 AM EDT Impaired fasting glucose POCT GLYCOSYLATED HEMOGLOBIN (HGB A1C) Routine 10/20/2024 8:55 AM EDT Impaired fasting glucose POCT URINALYSIS DIPSTICK Routine 09/16/2024 9:24 AM EDT Benign prostatic hyperplasia with lower urinary tract symptoms, symptom details unspecified TSH W/REFLEX TO FT4 Routine 09/16/2024 8 :58 AM EDT Memory loss VITAMIN B12 Routine 09/16/2024 8:58 AM EDT Memory loss PSA, TOTAL Routine 09/16/2024 8:58 AM EDT Benign prostatic hyperplasia with lower urinary tract symptoms, symptom details unspecified LIPID PANEL Routine 09/16/2024 8:58 AM EDT Atherosclerosis of navajo coronary artery of navajo heart with angina pectoris COMPREHENSIVE METABOLIC PANEL Routine 09/16/2024 8:58 AM EDT Atherosclerosis of navajo coronary artery of navajo heart with angina pectoris CBC (INCLUDES DIFF/PLT) Routine 09/16/2024 8:58 AM EDT Atherosclerosis of navajo coronary artery of navajo heart with angina pectoris from Last 3 Months Results * Microalbumin / creatinine urine ratio [...] Performing Organization Information Site ID: QPT Name: [facility] Address: [address] [place] [address], [address] [place] [phone] Director: Jerry Zimmerman MD us Lauren Adamson MD LAB URINE ORDERABLES Final Resul t [facility] * (ABNORMAL) POCT glycosylated hemoglobin (Hb A1C) docked device (10/20/2024 8:55 AM EDT) Hemoglobin A1C 6.1 Blood Venous blood specimen / Unknown 10/20/2024 8:55 AM EDT us Lauren Adamson MD POINT OF CARE TEST ENTER/EDIT OR DERABLES Final Result * POCT Urinalysis dipstick (09/16/2024 9:24 AM EDT) Color, UA Straw Clarity, UA Clear Glucose, UA Negative Negative - 2000(110) ++++ mg/dL Bilirubin, UA Negative Negative - 4(70) +++ mg/dL Ketones, UA Negative Negative - 160(16) ++++ mg/dL Spec Grav, UA 1.020 1 - 1.03 Blood, UA Negative Negative - 50 Wolfgang/mcL pH, UA 6.0 5 - 9 Protein, UA Trace Negative - 2000(20) ++++ mg/dL Urobilinogen, UA 0.2 0.2 - 12 mg/dL Leukocytes, UA Negative Negative - 500+++ Tip/mcL Nitrite, UA Negative Negative - Positive Urine 09/16/2024 9:24 AM EDT us Lauren Adamson MD POINT OF CARE TEST ENTER/EDIT OR DERABLES Final Result * TSH W/REFLEX TO FT4 (09/16/2024 8:58 AM EDT) TSH W/REFLEX TO FT4 2.01 0.40 - 4.50 mIU/L [facility] 09/16/2024 8:58 AM EDT 09/16/2024 3:48 PM EDT Narrative Resulting Agency Comment Performing Organization Information Site ID: QPT Name: [facility] Address: [address] [place] [address], [address] [place] [phone] Director: Jerry Zimmerman MD us Lauren Adamson MD LAB BLOOD ORDERABLES Final Resul t [facility] * (ABNORMAL) CBC and differential (09/16/2024 8:58 AM EDT) [facility] WHITE BLOOD CELL COUNT 4.1 3.8 - 10.8 Thousand/u L [facility] RED BLOOD CELL COUNT 4.34 4.20 - 5.80 Million/uL [facility] HEMOGLOBIN 13.1(L) 13.2 - 17.1 g/dL [facility] HEMATOCRIT 39.6 38.5 - 50.0 % [facility] MCV 91.2 80.0 - 100.0 fL [facility] MCH 30.2 27.0 - 33.0 pg [facility] MCHC 33.1 32.0 - 36.0 g/dL [facility] Comment: For adults, a slight decrease in the calculated MCHC value (in the range of 30 to 32 g/dL) is most likely not clinically significant; however, it should be interpreted with caution in correlation with other red cell parameters and the patient's clinical condition. RDW 13.5 11.0 - 15.0 % [facility] PLATELET COUNT 164 140 - 400 Thousand/u L [facility] MPV 11.3 7.5 - 12.5 fL [facility] ABSOLUTE NEUTROPHILS 2,878 1,500 - 7,800 cells/uL [facility] ABSOLUTE LYMPHOCYTES 599(L) 850 - 3,900 cells/uL [facility] ABSOLUTE MONOCYTES 504 200 - 950 cells/uL [facility] ABSOLUTE EOSINOPHILS 111 15 - 500 cells/uL [facility] ABSOLUTE BASOPHILS 8 0 - 200 cells/uL [facility] NEUTROPHILS 70.2 % [facility] LYMPHOCYTES 14.6 % [facility] MONOCYTES 12.3 % [facility] EOSINOPHILS 2.7 % [facility] BASOPHILS 0.2 % [facility] Blood Venous blood specimen / Unknown 09/16/2024 8:58 AM EDT 09/16/2024 3:48 PM EDT Narrative Resulting Agency Comment Performing Organization Information Site ID: QTW Name: [facility] Address: [address] [place] [phone] Director: Rolanda Winters Lauren Adamson MD LAB BLOOD ORDERABLES Final Resul t [facility] * PSA (09/16/2024 8:58 AM EDT) PSA, TOTAL 3.90 < OR = 4.00 ng/mL [facility] Comment: The total PSA value from this assay system is standardized against the WHO standard. The test result will be approximately 20% lower when compared to the equimolar-standardized total PSA (Amada Jon). Comparison of serial PSA results should be interpreted with this fact in mind. This test was performed using the Siemens chemiluminescent method. Values obtained from different assay methods cannot be used interchangeably. PSA levels, regardless of value, should not be interpreted as absolute evidence of the presence or absence of disease. Blood Venous blood specimen / Unknown 09/16/2024 8:58 AM EDT 09/16/2024 3:48 PM EDT Narrative Resulting Agency Comment Performing Organization Information Site ID: QPT Name: [facility] Address: [address] [place] [address], [address] [place] [phone] Director: Jerry Zimmerman MD Lauren Adamson MD LAB BLOOD ORDERABLES Final Resul t Performing Organization Address [facility] de Phone Number [facility] * Vitamin B12 (09/16/2024 8:58 AM EDT) Pathologist [facility] VITAMIN B12 247 200 - 1,100 pg/mL [facility] Comment: Please Note: Although the reference range for vitamin B12 is 200-1100 pg/mL, it has been reported that between 5 and 10% of patients with values between 200 and 400 pg/mL may experience neuropsychiatric and hematologic abnormalities due to occult B12 deficiency; less than 1% of patients with values above 400 pg/mL will have symptoms. Blood Venous blood specimen / Unknown 09/16/2024 8:58 AM EDT 09/16/2024 3:48 PM EDT Narrative Resulting Agency Comment Performing Organization Information Site ID: QPT Name: [facility] Address: [address] [place] [address], [address] [place] [phone] Director: Jerry Zimmerman MD Lauren Adamson MD LAB BLOOD ORDERABLES Final Resul t Performing Organization Address [facility] de Phone Number [facility] * (ABNORMAL) Lipid panel (09/16/2024 8:58 AM EDT) CHOLESTEROL, TOTAL 169 <200 mg/dL [facility] HDL CHOLESTEROL 55 > OR = 40 mg/dL [facility] TRIGLYCERIDES 39 <150 mg/dL [facility] LDL CHOLESTEROL 103(H) mg/dL (calc) [facility] Comment: Reference range: <100 Desirable range <100 mg/dL for primary prevention; <70 mg/dL for patients with CHD or diabetic patients with > or = 2 CHD risk factors. LDL-C is now calculated using the Valerie calculation, which is a validated novel method providing better accuracy than the Friedewald equation in the estimation of LDL-C. Humza SS et al. MAURO. 2013;310(19): 0037-0423 (http://education.CUPR/faq/TUY710) CHOL/HDLC RATIO 3.1 <5.0 (calc) [facility] NON HDL CHOLESTEROL 114 <130 mg/dL (calc) [facility] Comment: For patients with diabetes plus 1 major ASCVD risk factor, treating to a non-HDL-C goal of <100 mg/dL (LDL-C of <70 mg/dL) is considered a therapeutic option. Blood Venous blood specimen / Unknown 09/16/2024 8:58 AM EDT 09/16/2024 3:48 PM EDT Narrative Resulting Agency Comment Performing Organization Information Site ID: QPT Name: [facility] Address: [address] [place] [address], [address] [place] [phone] Director: Jerry Zimmerman MD Lauren Adamson MD LAB BLOOD ORDERABLES Final Resul t [facility] * (ABNORMAL) Comprehensive metabolic panel (09/16/2024 8:58 AM EDT) Glucose 122(H) 65 - 99 mg/dL [facility] Comment: Fasting reference interval For someone without known diabetes, a glucose value between 100 and 125 mg/dL is consistent with prediabetes and should be confirmed with a follow-up test. BUN 20 7 - 25 mg/dL [facility] Creatinine 0.68(L) 0.70 - 1.22 mg/dL [facility] EGFR 92 > OR = 60 mL/min/1.7 3m2 [facility] BUN/CREATININE RATIO 29(H) 6 - 22 (calc) [facility] Sodium 140 135 - 146 mmol/L [facility] Potassium, Bld 4.5 3.5 - 5.3 mmol/L [facility] Chloride 105 98 - 110 mmol/L [facility] Carbon Dioxide 30 20 - 32 mmol/L [facility] Calcium 8.9 8.6 - 10.3 mg/dL [facility] PROTEIN, TOTAL 6.1 6.1 - 8.1 g/dL [facility] ALBUMIN 3.9 3.6 - 5.1 g/dL [facility] GLOBULIN 2.2 1.9 - 3.7 g/dL (calc) [facility] ALBUMIN/GLOBULIN RATIO 1.8 1.0 - 2.5 (calc) [facility] BILIRUBIN, TOTAL 1.0 0.2 - 1.2 mg/dL [facility] ALKALINE PHOSPHATASE 52 35 - 144 U/L [facility] AST 16 10 - 35 U/L [facility] ALT 11 9 - 46 U/L [facility] Blood Venous blood specimen / Unknown 09/16/2024 8:58 AM EDT 09/16/2024 3:48 PM EDT Narrative Resulting Agency Comment Performing Organization Information Site ID: QTW Name: [facility] Address: [address] [place] [phone] Director: Rolanda Winters Lauren Adamson MD LAB BLOOD ORDERABLES Final Resul t [facility] from Last 3 Months Insurance MEDICARE [facility] [place] [phone] Care Teams Melt Helper Relationship Specialty Start Date End Date Lauren Adamson MD [address] [place] [address] PCP - General Family Medicine 09/09/24
--- OUTSIDE RECORDS SUMMARY | 2024-10-28 20:43 | XMS_ITS | Encounter Summary ---
Author Organization [facility] Address [id number] [place] [address] Care Team Providers Care Design Engineering Specialist Name Role Phone Lauren Adamson MD Primary Care Provider [phone] Reason for Visit * Reason Onset Date Comments TRANSFER FROM [facility] TO [facility] 09/18/2023 Encounter Details Date Type Department Care Team (Late st Contact Info) Description 09/18/2023 Telephone [facility] [address] [place] [phone] Benedict Rodriges MD [address] [place] [address] TRANSFER FROM [facility] TO [facility] Social History Tobacco Use Types Packs/Day Years Used Date Smoking Tobacco: Never Smokeless Tobacco: Never Alcohol Use Standard Drinks/Week Comments Yes 0 (1 standard drink = 0.6 oz pur e alcohol) [facility] Utilities Answer Date Recorded In the past 12 months has [employer], gas, oil, or water [employer] threatened to shut off services in your [...] encounter Miscellaneous Notes * Telephone Encounter - Alina Alonzo - 09/18/2023 1:52 PM EDT RECVD CALL FROM TO TRANSFER PT FROM [facility] RM#[id number] TO [facility] FOR A CATH 09/18/2023 DX:CARDIOMYOPATHY/PERSISTENT AFIB-PAGED BD TO CALL -PER LALO DiasW/XEROX MACHINE OPERATOR PT TOOK ELAQUIS TODAY AND CATH NEEDS TO BE 09/19/2023-BÁRBARA Dias W/PPC SCHEDULED CATH 09/19/2023 @1:30PM W/BD-I CALLED ACCESS SPOKE W/SABINA Dias TO ARRANGE TRANSPORT- WILL NOTIFY MES IN THE AM-[facility] VITALS: MED DRIP-HEP WEIGHT-203 LBS BP-131/86 P-93 R-16 TEMP-97.9 Sp02-98% RA documented in this encounter Plan of Treatment [...] on filedocumented in this encounter Care Teams Design Engineering Specialist Relationship Specialty Start Date End Date Lauren Adamson MD PCP - General Family Medicine 10/21/18 documented as of this encounter
--- OUTSIDE RECORDS SUMMARY | 2024-10-28 20:43 | XMS_ITS | Encounter Summary ---
Author Organization [facility] Address [address] [facility] [place] [address] Care Team Providers Care Toe Closing Machine Tender Name Role Phone Lauren Adamson MD Primary Care Provider [phone] Encounter Details Date Type Department Care Team (Latest Contact Info) Description 10/21/2024 Results Follow-Up [facility] Family Medicine [address] [place] [phone] Lauren Adamson MD [address] [place], [place] [phone] POCT glycosylated hemoglobin (Hb A1C) docked device, Microalbumin / creatinine urine ratio Social History Tobacco Use Types Packs/Day Years [...] Description 11/03/2024 9:00 AM EDT Office Visit [facility] [address] [facility] [address] [place] [phone] Betty Ribera MD [address] [facility] [address] [place] [address] documented as of this encounter Visit Diagnoses Not on filedocumented in this encounter Care Teams Toe Closing Machine Tender Relationship Specialty Start Date End Date Lauren Adamson MD [address] [place] [address] PCP - General Family Medicine 09/09/24 documented as of this encounter
--- OUTSIDE RECORDS SUMMARY | 2024-10-28 20:43 | XMS_ITS | Encounter Summary ---
Author Organization [facility] Address [id number] [address] [place] [address] Care Team Providers Care Page Technician Name Role Phone Lauren Adamson MD Primary Care Provider [phone] Reason for Visit * Reason Onset Date Comments Abnormal Stress Test 09/17/2023 Encounter Details Date Type Department Care Team (Late st Contact Info) Description 09/17/2023 Telephone [facility] [address] [place] [phone] Annika Singer Abnormal Stress Test Social History Tobacco Use Types Packs/Day Years Used Date Smoking Tobacco: Never Smokeless Tobacco: Never Alcohol Use Standard Drinks/Week Comments Yes 0 (1 standard drink = 0.6 oz pur e alcohol) [facility] Utilities Answer Date Recorded In the past 12 months has [employer], gas, oil, or water company threatened [...] encounter Miscellaneous Notes * Telephone Encounter - Annika Singer - 09/17/2023 5:33 PM EDT [facility] 206/1 New Consult Abnormal Stress test Nurse just wanted it added to consult Desk for [facility] documented in this encounter Plan of Treatment Not on file documented as of this encounter Goals Goal Patient Goal Type Associated Problems Recent Progress Patient-Stated? Author home with self care General Yes Nazia Hlil, RN Note: Evaluation of progress towards goal: per patient is independent at home with all ADL's and mobility. documented as of this encounter Visit Diagnoses Not on filedocumented in this encounter Care Teams Page Technician Relationship Specialty Start Date End Date Lauren Adamson MD PCP - General Family Medicine 10/21/18 documented as of this encounter
== END 2024-10-28 20:41 | disposition home or self-care (01) ==
PROVIDERS: PCP Otolaryngology; Visit Provider Otolaryngology
DX: G47.33 Obstructive sleep apnea (adult) (pediatric) (principal)
CPT/HCPCS: 95810

== ENCOUNTER 2024-11-18 20:50 | Outpatient (OUT) | payer MEDICARE, OTHER, SELFPAY | END 2024-11-18 20:51 | disposition home or self-care (01) | PROVIDERS: PCP Otolaryngology; Visit Provider Otolaryngology | DX: G47.33 Obstructive sleep apnea (adult) (pediatric) (principal) | CPT/HCPCS: 95811 ==